=== PATIENT | male | born 1945 | race Caucasian/White ===

== ENCOUNTER → 2024-01-30 09:06 | Outpatient (REF) | payer MEDICARE, BC, SELFPAY | LOC: RAD 09:06 | PROVIDERS: ATTENDING PHYSICIAN Nurse Practitioner | DX: R91.8 Other nonspecific abnormal finding of lung field (principal) | CPT/HCPCS: 71250 ==

== ENCOUNTER 2024-08-12 18:31 | Emergency (ER) | payer MEDICARE, BC, SELFPAY ==
[2024-08-12 18:57] VITALS: BP 115/61
[2024-08-12 19:29] LABS: % Basophils 0.5 % (0-2); % Eosinophils 2.5 % (0-6); % Immature Granulocytes 0.5 % (0-0.5); % Lymphocytes 27.1 % (20.5-51.1); % Monocytes 9.7 % (1.7-9.3); % Neutrophils 59.7 % (42.2-75.2); Absolute Eosinophils 0.2 10^3/uL (0-0.7); Absolute Lymphocytes 2.3 10^3/uL (1.2-3.4); Absolute Monocytes 0.8 10^3/uL (0.1-0.6); Absolute Neutrophils 5.1 10^3/uL (1.4-6.5); Hematocrit 42.3 % (39.0-52.0); Hemoglobin 14.9 g/dL (13.0-18.0); Mean Corp Hgb Conc. 35.2 g/dL (33.0-37.0); Mean Corpuscular Hgb 33.6 pg (27.0-31.0); Mean Corpuscular Volume 95.3 fL (80.0-94.0); Nucleated Red Blood Cells % 0 % (-); Platelet Count 234 10^3/uL (130-400); Red Blood Cell Count 4.44 10^6/uL (4.70-6.10); Red Cell Dist. Width 12.8 % (11.5-14.5); White Blood Cell Count 8.5 10^3/uL (4.8-10.8)
[2024-08-12 19:39] LABS: ALT (SGPT) 21 U/L (0-50); AST (SGOT) 22 U/L (17-59); Albumin 4.1 g/dl (3.5-5.0); Alkaline Phosphatase 51 U/L (38-126); Blood Urea Nitrogen 17 mg/dl (9-20); Calcium 9.2 mg/dl (8.4-10.2); Carbon Dioxide 24 mmol/L (22-30); Chloride 104 mmol/L (98-107); Glucose 123 mg/dl (70-99); Potassium 4.5 mmol/L (3.5-5.1); Sodium 137 mmol/L (135-145); Total Bilirubin 0.5 mg/dl (0.2-1.3); Total Protein 6.7 g/dl (6.3-8.2); eGFR > 60.00
--- NOTE | 2024-08-12 20:50 | ED.GENMED ---
History of Present Illness
General
Chief Complaint: Head Injury
Time Seen by Provider: 08/12/24 20:49
History of Present Illness
History of Present Illness:
TIME OF INITIAL ENCOUNTER: 8:50pm
HPI: The patient felt lightheaded and was found by family at the bottom of 3 stone steps outside of his porch. He has passed out in the past. He drinks alcohol on a evening basis that he describes as 1 drink as a martini. Daughter states that
they have been encouraging good p.o. intake. The patient never had any chest pain. Family's main concern was that he did have head injury including laceration to the posterior scalp.
EXAM:
GENERAL: Well appearing in no distress
CERVICAL SPINE: No midline c-spine tenderness with excellent AROM
HEAD: Abrasions noted to the left side of the forehead however there is no associated hematoma, there is a 3 cm laceration at the midline of the occiput
CHEST: No chest wall tenderness
LUNGS: Equal lung sounds, no respiratory distress
ABDOMEN: No abdominal tenderness, no peritoneal signs
EXTREMITIES: Normal active range of motion, no tenderness
NEURO: Excellent strength all extremities, appropriate mental status, normal speech/language
NUMBER AND COMPLEXITY OF PROBLEMS ADDRESSED AT THE ENCOUNTER
� Chronic conditions affecting care: Hyperlipidemia, diabetes
� Acute Exacerbation and/or Progression of Chronic Illness: This is an acute problem
� Differential Diagnosis includes: Scalp laceration, hypoglycemia, dysrhythmia, intracranial hemorrhage, dehydration, effects of alcohol intake
AMOUNT AND/OR COMPLEXITY OF DATA TO BE REVIEWED AND ANALYZED
� I performed an independent evaluation of and my interpretation is:
EKG: Sinus 72, septal Q waves with no old EKG to compare
CT: CT head shows no acute abnormality
X-rays:
Laboratory Studies: CBC unremarkable, chemistries unremarkable,
Other:
� Review of other/old records: I reviewed records, the patient has had echo in 2022
� Clinical information was obtained by an independent historian: I spoke to the daughter at bedside
� Prescriptions/Medications Considered but not given:
� Further testing considered but not performed:
RISK OF COMPLICATIONS AND/OR MORBIDITY OR MORTALITY OF PATIENT MANAGEMENT
� Social determinants of health affecting care: Lives at home close to daughter
� Discussion with other providers:
� Escalation of care including admission/observation vs risk of discharge considered: I irrigated the wounds of the forehead and the posterior scalp. I closed the posterior scalp laceration with katherine.
ANY OTHER UPDATES:
I did encourage patient and daughter to have patient stop drinking alcohol or at least decrease the intake which may be a contributing factor
Phy Exam
Physical Exam
Physical Exam:
See HPI
Course
Orders/Labs/Results
Orders:
Orders
08/12/24 19:05
EKG [Electrocardiogram (*1)] Urgent
Reason for Study: Syncope
CT Head W/o Iv Contrast Urgent
Comment:
Reason For Exam: s/p fall + head injury
08/12/24 19:06
EKG- Treatment ONCE
08/12/24 19:16
CMP [Comprehensive Metabolic Panel] Urgent
Complete Blood Count/With Diff Urgent
Abnormal Lab Results
08/12/24
19:16
RBC 4.44 L 10^6/uL
(4.70-6.10)
MCV 95.3 H fL
(80.0-94.0)
MCH 33.6 H pg
(27.0-31.0)
Absolute Monos (auto) 0.8 H 10^3/uL
(0.1-0.6)
Monocytes % 9.7 H %
(1.7-9.3)
Glucose 123 H mg/dl
(70-99)
08/12/24 19:16
08/12/24 19:16
Vital Signs
Initial and Last Documented VS:
Initial Vital Signs
Temp Pulse Resp BP Pulse Ox
37.1 C 74 18 115/61 96
08/12/24 18:57 08/12/24 18:57 08/12/24 18:57 08/12/24 18:57 08/12/24 18:57
Last Documented Vital Signs
Temp Pulse Resp BP Pulse Ox
37.1 C 74 18 115/61 96
08/12/24 18:57 08/12/24 18:57 08/12/24 18:57 08/12/24 18:57 08/12/24 18:57
Procedures
Laceration Closure
Posterior Scalp:
Status of Wound: clean
Description of Wound Edges: ragged
Preparation: cleaned with saline
Skin Closure Material: skin katherine
Additional information:
3 katherine were placed after I cleaned and irrigated the wound
*Critical Care Note
Total Time (30-74mins, 75-104mins- exclusive of procedures): Not Applicable
ED Attending Note
-
Portions of this chart may have been created with voice recognition software.� Occasional wrong word or��sound alike� substitutions may have occurred due to the inherent limitations of voice recognition software.
Discharge Plan
Departure
Patient Disposition: Home (Routine Discharge)
Date of Disposition: 08/12/24
Time of Disposition: 21:30
Patient with high blood pressure during this ER visit?: No
Discharge Problem:
Laceration of scalp
Instructions: Head Injury in Adults (DC), Laceration Repair With Katherine (DC)
Activity Restrictions/Additional Instructions:
Have katherine removed by your doctor in approximately 7 to 14 days. Return here if worse or other concerns. Basic blood work is unremarkable. I recommended to decrease alcohol intake. CAT scan of the brain shows no internal bleeding. EKG shows a
normal sinus rhythm.
Interventions
Interventions:
*Risk Screen - Suicide Last Done: 08/12/24 21:23
*General Assessment Last Done: 08/12/24 21:23
*Neglect/Abuse Screening Last Done: 08/12/24 21:23
*ED COVID-19 Vaccine History Last Done: 08/12/24 18:57
*Nursing Disposition Last Done: 08/12/24 22:11
ED- Cardiac Assessment Last Done: 08/12/24 21:23
ED- Neurological Assessment Last Done: 08/12/24 21:23
ED-Skin Assessment Last Done: 08/12/24 21:23
Discharge Date and Time
Discharge Date/Time: 08/12/24 22:12
Print Language: MICRONESIAN
== END 2024-08-12 22:12 | disposition home or self-care (01) ==
LOC: EMR 18:31
PROVIDERS: Emergency Medicine; EMERGENCY PHYSICIAN Emergency Medicine; FAMILY PHYSICIAN Nurse Practitioner
DX: S01.01XA Laceration without foreign body of scalp, initial encounter (principal); W19.XXXA Unspecified fall, initial encounter; R42 Dizziness and giddiness
CPT/HCPCS: 12002; 99284; 70450; 80053; 85025; 93005

== ENCOUNTER → 2024-10-05 08:55 | Outpatient (REF) | payer MEDICARE, BC, SELFPAY | LOC: RCS 08:55 | PROVIDERS: ATTENDING PHYSICIAN Nurse Practitioner | DX: I35.0 Nonrheumatic aortic (valve) stenosis (principal); E04.1 Nontoxic single thyroid nodule | CPT/HCPCS: 76536; 93306 ==